=== PATIENT | male | born 1965 | race Caucasian/White ===

== ENCOUNTER 2017-04-03 15:33 | Emergency (ER) | payer SELFPAY ==
[2017-04-03 15:44] VITALS: BP 138/92
--- NOTE | 2017-04-03 17:06 | Emergency Department Report ---
ED General Adult HPI - General Chief complaint: Nausea/Vomiting/Diarrhea Stated complaint: STOMACH VIRUS Time Seen by Provider: 04/03/17 17:00 Source: patient Mode of arrival: Ambulatory Limitations: No Limitations - History of Present Illness Initial comments: Patient is a 51-year-old male contrary to triage patient states foreign body per rectum "I was getting drunk Monday night and made a bit with my friend swallowed a piece of plastic now it's stuck in my rectum and I can't get it out " patient denies rectal bleeding no nausea vomiting no diarrhea fever or chills Complaint: 2 -: days(s) Radiation: non-radiation Severity scale (0 -10): 3 Consistency: constant Worsens with: none Associated Symptoms: other (abdominal cramping ) Treatments Prior to Arrival: none - Related Data Previous Rx's Medication Instructions Recorded Last Taken Type Hydrocortisone/Pramoxine 1 applicator RC BID #1 foam 04/03/17 Unknown Rx [Proctofoam-Hc Foam] Allergies Allergy/AdvReac Type Severity Reaction Status Date / Time No Known Allergies Allergy Unverified 04/03/17 15:38 ED Review of Systems ROS: Stated complaint: STOMACH VIRUS Other details as noted in HPI Constitutional: denies: chills, fever Eyes: denies: eye pain, eye discharge, vision change ENT: denies: ear pain, throat pain Respiratory: denies: cough, shortness of breath, wheezing Cardiovascular: denies: chest pain, palpitations Endocrine: no symptoms reported Gastrointestinal: other (foreignbody rectum ). denies: abdominal pain, nausea, diarrhea, constipation, hematemesis, melena, hematochezia Genitourinary: denies: urgency, dysuria Musculoskeletal: denies: back pain, joint swelling, arthralgia Skin: denies: rash, lesions Neurological: denies: headache, weakness, paresthesias Psychiatric: denies: anxiety, depression Hematological/Lymphatic: denies: easy bleeding, easy bruising ED Past Medical Hx - Past Medical History Previous Medical History?: No - Surgical History Past Surgical History?: Yes Additional Surgical History: Right arm , left thumb - Social History Smoking Status: Never Smoker Substance Use Type: Alcohol - Medications Home Medications: Home Medications Medication Instructions Recorded Confirmed Last Taken Type Hydrocortisone/Pramoxine 1 applicator RC BID #1 foam 04/03/17 Unknown Rx [Proctofoam-Hc Foam] ED Physical Exam - General Limitations: No Limitations General appearance: alert, in no apparent distress - Head Head exam: Present: atraumatic, normocephalic - Eye Eye exam: Present: normal appearance - ENT ENT exam: Present: mucous membranes moist - Neck Neck exam: Present: normal inspection - Respiratory Respiratory exam: Present: normal lung sounds bilaterally. Absent: respiratory distress - Cardiovascular Cardiovascular Exam: Present: regular rate, normal rhythm. Absent: systolic murmur, diastolic murmur, rubs, gallop - GI/Abdominal GI/Abdominal exam: Present: soft, normal bowel sounds. Absent: distended, tenderness, guarding, rebound, rigid, organomegaly, mass, bruit, pulsatile mass , hernia - Expanded GI/Abdominal Exam Expanded GI/Abdominal exam: Absent: psoas sign, obturator sign, heel tap sign, Julio's sign, Rovsing's sign, tenderness at Mcburney's Point, ascites - Rectal Rectal exam: Present: normal rectal tone, hemorrhoids (external hemorrhoids no bleeding ), normal prostate. Absent: black stool, bloody stool, fecal impaction , mass, tenderness, prostate tenderness, prostate enlargement - Extremities Exam Extremities exam: Present: normal inspection - Back Exam Back exam: Present: normal inspection - Neurological Exam Neurological exam: Present: alert, oriented X3 - Psychiatric Psychiatric exam: Present: normal affect, normal mood - Skin Skin exam: Present: warm, dry, intact, normal color. Absent: rash ED Course Vital Signs 04/03/17 15:38 Temperature 98.1 F Pulse Rate 83 Respiratory 14 Rate Blood Pressure 138/92 O2 Sat by Pulse 99 Oximetry ED Medical Decision Making - Radiology Data Radiology results: report reviewed, image reviewed normal kub xray no foreignbody - Medical Decision Making Patient is a 51-year-old male contrary to triage patient states foreign body per rectum "I was getting drunk day night and made a bit with my friend swallowed a piece of plastic now it's stuck in my rectum and I can't get it out " patient denies rectal bleeding no nausea vomiting no diarrhea fever or chills.exam: Noted external hemorrhoids no bleeding normal rectal tone and normal prostate KUB x-ray negative for foreign body , plan Proctofoam follow up with GI patient will be discharged this time in stable condition pt continues to toleate po intake no abdominal pain no nausea vomiting patient will return to ER symptoms worsen patient verbalizes understanding of same . Critical care attestation.: If time is entered above; I have spent that time in minutes in the direct care of this critically ill patient, excluding procedure time. ED Disposition Clinical Impression: Hemorrhoids, external Foreign body ingestion Qualifiers: Encounter type: initial encounter Qualified Code(s): T18.9XXA - Foreign body of alimentary tract, part unspecified, initial encounter Disposition: TO HOME OR SELFCARE Is pt being admited?: No Does the pt Need Aspirin: No Condition: Good Instructions: Hemorrhoids (ED), Foreign Body Ingestion (ED) Prescriptions: Hydrocortisone/Pramoxine [Proctofoam-Hc Foam] 1 applicator RC BID #1 foam Referrals: TRACY ALEJANDRA MD [Staff Physician] - 3-5 Days Forms: Work/School Release Form(ED) Time of Disposition: 18:16
--- NOTE | 2017-04-03 18:33 | XRay Report ---
FINAL REPORT PROCEDURE: XR ABDOMEN 1V AP TECHNIQUE: AP supine portable radiograph of the abdomen was obtained at 04/03/2017 22:24 (T) . HISTORY: Foreign body rectum. COMPARISON: No prior studies are available for comparison. FINDINGS: Bowel gas pattern: Nonobstructive. A few scattered mildly prominent loops of small bowel. Masses or calcifications: Small pelvic phleboliths. Bony structures: Small multilevel osteophytes. Other: None. IMPRESSION: Mildly reactive nonobstructive bowel gas pattern. No radiopaque foreign body. Please note some foreign bodies are not radiopaque and therefore not visualized on radiograph.
== END 2017-04-03 18:37 | disposition home or self-care (01) ==
LOC: ED 15:33
DX: T18.5XXA Foreign body in anus and rectum, initial encounter (principal); K64.4 Residual hemorrhoidal skin tags; W45.8XXA Other foreign body or object entering through skin, initial encounter; Y93.89 Activity, other specified; Y99.8 Other external cause status; Y92.89 Other specified places as the place of occurrence of the external cause
CPT/HCPCS: 74000; 99283